=== PATIENT | female | born 1980 | race Caucasian/White ===

== ENCOUNTER 2018-12-18 10:05 | Inpatient (IN) | payer BC ==
[~2018-12-18] VITALS: Ht 160 cm; Wt 72.1 kg
[2018-12-18] VITALS (51 sets, daily range): BP systolic 76–124; BP diastolic 46–75
[~2018-12-18 10:05] MED LIST: ACHYD1T PO; ALBU8.5H2 IH; Docusate Sodium PO; Ibuprofen PO; MONT10TA21 PO; PEDI1TAB35 PO
--- NOTE | 2018-12-18 10:05 | NUR ---
Arrived to unit via ambulation. Sent from clinic in labor. Wt obtained and to room 318. Urine sample obtained and gowned. pt to bed. monitors applied. plan of care reviewed with pt and at bedside. Oriented to room, call light and surroundings. ice water to bedside.
[2018-12-18] MEDS ORDERED: D5 LR IV SOLUTION 1,000 ML IV SCH (10:15)
[2018-12-18 10:58] LABS: BASOPHILS % (AUTO) 0 % (0-10); EOSINOPHILS # (AUTO) 0.1 10^3/uL (0.0-0.3); EOSINOPHILS % (AUTO) 1 % (0-10); HEMATOCRIT 32 % (35-52); HEMOGLOBIN 10.5 G/DL (11.5-16.0); LYMPHOCYTES # (AUTO) 1.8 X 10^3 (1.0-4.0); LYMPHOCYTES % (AUTO) 21 % (12-44); MEAN CORPUSCULAR HEMOGLOBIN 28 PG (25-34); MEAN CORPUSCULAR HGB CONC 33 G/DL (32-36); MEAN CORPUSCULAR VOLUME 86 FL (80-99); MEAN PLATELET VOLUME 10.5 FL (7.4-10.4); MONOCYTES # (AUTO) 0.8 X 10^3 (0.0-1.0); MONOCYTES % (AUTO) 9 % (0-12); NEUTROPHILS # (AUTO) 5.9 X 10^3 (1.8-7.8); NEUTROPHILS % (AUTO) 69 % (42-75); PLATELET COUNT 231 10^3/uL (130-400); RED CELL DISTRIBUTION WIDTH 13.5 % (10.0-14.5); WHITE BLOOD COUNT 8.5 10^3/uL (4.3-11.0)
--- NOTE | 2018-12-18 11:05 | NUR ---
noted varicosities to left leg.
[2018-12-18] MEDS ORDERED: FLUT1AER IH ×2 (11:22)
[2018-12-18] MEDS ORDERED: SUFENTA 0.6MCG/ML BUPIVA 0.125 100 ML ONE (11:27)
[2018-12-18] MEDS ORDERED: fentaNYL INJECTION 100 MCG/2 ML AMP ONE (11:48)
[2018-12-18] MEDS ORDERED: BUPIVACAINE 0.25% 30 ML (SENSORCAINE) VIAL ONE (11:48)
[2018-12-18] MEDS ORDERED: ONDANSETRON 4 MG/2 ML (SDV) Z0FRAN ONE (12:48)
[2018-12-18] MEDS ORDERED: LACTATED RINGERS 1,000 ML IV SCH (13:02)
[2018-12-18] MEDS ORDERED: METOCLOPRAMIDE INJ 10 MG/2 ML (REGLAN) IV PRN (13:15)
[2018-12-18] MEDS ORDERED: ONDANSETRON 4 MG/2 ML (SDV) Z0FRAN IV PRN (13:15)
[2018-12-18] MEDS ORDERED: diphenhydrAMINE 50 MG/ML INJ (BENADRYL) IV PRN (13:15)
[2018-12-18] MEDS ORDERED: EPIDURAL (SUFENTA 0.6MCG/ML BUPIVA 0.125%) 100 ML BAG EPI PRN (13:15)
[2018-12-18] MEDS ORDERED: NALOXONE 0.4 MG/ML 1 ML (NARCAN) VIAL IV PRN ×2 (13:15)
[2018-12-18] MEDS ORDERED: DOCU-143 PO ×2 (13:34)
[2018-12-18] MEDS ORDERED: IBUP-1780 PO ×2 (13:34)
[2018-12-18] MEDS ORDERED: OXYC1TAB87 PO ×2 (13:34)
--- NOTE | 2018-12-18 13:35 | Discharge Instructions ---
Discharge Instructions Discharge Medications New, Converted or Re-Newed RX: RX on Chart Patient Instructions Return to The Hospital For: DIRECTED Activity & Diet Discharge Diet: No Restrictions Activity as Tolerated: No Orders-Post D/C & Referrals Follow Up Appt: Call to make follow up appt. for patient in 4 weeks. Activity Per routine post vaginal delivery instructions. Please call in RX to patient pharmacy. Diet as tolerated Patient may shower or tub bathe as desired. RIMMA GALLO MD Dec 18, 2018 13:35
[2018-12-18] MEDS ORDERED: OXYTOCIN/NORMAL SALINE 500 ML IV SCH ×2 (15:57→19:22)
[2018-12-18] MEDS: D5 LR IV SOLUTION 1,000 ML IV SCH (15:58)
[2018-12-18] MEDS: CATHETER FLUSH 10 ML SYR IV SCH ×2 (15:59→22:00)
[2018-12-18] MEDS ORDERED: OXYTOCIN/NORMAL SALINE 500 ML IV ONE (16:00)
[2018-12-18] MEDS ORDERED: LIDOCAINE/EPI 2% 1:200,00 (XYLOCAINE) 10 ML VIAL ONE (17:31)
--- NOTE | 2018-12-18 17:49 | NUR ---
Spontaneous vaginal delivery of placenta with cord. fundal massage by rn with heavy to moderate rubra noted, no clots noted. perineum examined per dr webber. 1750 vss ffu/0 with moderate rubra noted. plan of care reviewed with pt. 1757 epidural infusion stopped 1800 pt to hf position to take epidural out. epidural dc'd with tip intact. pt reports with sitting in hf position that her head and neck are starting to hurt again. pt back down to low duran position. 1805 vss. ffu/0 with lt-mod rubra noted and 5cm clot expressed. 1820 vss. ffu/0 with lt-mod rubra noted, no clots expressed. 1837 vss ffu/0 with mod rubra noted, no clots expressed. 1850 ffu/0 with mod rubra noted, no clots expressed 1904 vss ffu/0 with lt rubra noted, no clots expressed. pericare, pad changed and underwear on.
[2018-12-18] MEDS ORDERED: BENZOCAINE/MENTHOL (DERMOPLAST) 56 ML CAN TP PRN (19:30)
[2018-12-18] MEDS ORDERED: MEASLES,MUMPS,RUBELLA 1 EA INJ SC ONE (19:30)
[2018-12-18] MEDS ORDERED: oxyCODONE/APAP 5/325MG (PERCOCET 5) TABLET PO PRN (19:30)
[2018-12-18] MEDS ORDERED: TETANUS,DIPTH,PERTUSS P/F (BOOSTRIX) 0.5 ML VIAL IM ONE (19:30)
[2018-12-18] MEDS ORDERED: ONDANSETRON 4 MG/2 ML (SDV) Z0FRAN IVP PRN (19:30)
--- NOTE | 2018-12-18 20:43 | OPERATIVE REPORT ---
DATE OF SERVICE: 12/18/2018 DELIVERY NOTE The patient delivered by term spontaneous vaginal delivery at 37 and 5/7 weeks' gestation, a viable female infant with Apgars of 9 and 9 at 1 and 5 minutes respectively, weight of 6 pounds 11 ounces. time of 1744 and a cord blood pH that is pending. The delivered over an intact perineum under epidural analgesia. The infant was bulb suctioned on delivery of the head and again on completion of delivery. Umbilical cord was eventually doubly clamped, father cut the cord and the baby was passed to mom's abdomen. Cord bloods were obtained. The placenta delivered spontaneously [place]. It was normal with a 3-vessel cord. The cervix, vagina, rectum, and perineum were examined and found intact, except for two minor superficial abrasions on the inner left labia majora and minora. These were hemostatic and very superficial and required no repair. Sponge and needle counts were correct on completion of delivery on the post- exam. The patient remained in the LDR for recovery. Estimated blood loss was around 300 mL for the delivery. The patient tolerated the delivery well, the baby remained with the mom. Job ID: [id number] DocumentID: [id number] Dictated Date: 12/18/2018 17:59:56 Leather Stripping Machine Operator Date: 12/18/2018 20:42:03 Dictated By: RIMMA GALLO MD
[2018-12-18] MEDS: KETOROLAC 30 MG/ML VIAL IVP SCH (21:30)
[2018-12-18] MEDS: DOCUSATE SODIUM 100 MG (COLACE) CAP PO SCH (21:30)
[2018-12-19] VITALS (13 sets, daily range): BP systolic 92–107; BP diastolic 58–71
[2018-12-19] MEDS: D5 LR IV SOLUTION 1,000 ML IV SCH ×4 (01:20→10:12)
[2018-12-19] MEDS: KETOROLAC 30 MG/ML VIAL IVP SCH ×2 (04:41→09:58)
[2018-12-19] MEDS ORDERED: BUTORPHANOL INJ 2 MG/ML (STADOL) VIAL ONE (05:08)
--- NOTE | 2018-12-19 05:10 | Progress Note ---
Standard Progress Note Progress Notes/Assess & Plan Date Seen by a Provider: Dec 19, 2018 Time Seen by a Provider: 05:08 Progress/Assessment & Plan Patient complains of a headache likely related to a wet tap on her epidural. Anesthesia is apprised and will be managed patient today in that regard. Patient is voiding and tolerating oral intake. Vital Signs 12/19/18 04:12 Temp 37.1 Pulse 88 Resp 16 B/P (MAP) 98/66 (77) Pulse Ox 97 O2 Delivery Room Air Vital signs are stable. Patient is afebrile. The abdomen is benign. Fundus is firm below the umbilicus nontender. Extremities show no clubbing cyanosis. There is no Homans sign. Assessment and plan day number 1 status post term spontaneous vaginal delivery doing well except for spinal headache. Plan is for routine convalescence care was consult for anesthesia for her headache. Plan on discharge home likely tomorrow if patient is ready Final Diagnosis 37-5/7 weeks spontaneous vaginal delivery RIMMA GALLO MD Dec 19, 2018 05:10
[2018-12-19] MEDS ORDERED: BUTORPHANOL INJ 2 MG/ML (STADOL) VIAL IV PRN (05:15)
--- NOTE | 2018-12-19 07:55 | NUR ---
Steve Tovar called and notified of second shift supervisor patient financial rep of pt overnight. Notified of pt difficulty with standing sitting upright, having to lie flat in bed and increasing pain with ADL's. New order received to obtain consent for blood patch this a.m. received. Rn to pt bedside and reviewed plan of care with pt and .
--- NOTE | 2018-12-19 09:05 | NUR ---
Steve Tovar WOOL HAT HYDRAULICKER to bedside and reviewed plan of care with pt.
--- NOTE | 2018-12-19 09:20 | NUR ---
Pt up and ambulates to room 308 accompanied by RN. To side of bed for epidural blood patch. Addendum: 12/19/18 at 1028 by ADORE AMADOR RN see anesthesia record
--- NOTE | 2018-12-19 09:50 | NUR ---
Ambulates self back to room 310, to bathroom. pt reports nausea and increased neck pressure. void and to bed in flat position. emesis basin given. rn obtained vital signs. pt reports nausea better but neck pressure and between shoulder blades pain of 7:10. plan of care reviewed with pt. Addendum: 12/19/18 at 1028 by ADORE AMADOR RN accompanied by rn back to room. Addendum: 12/19/18 at 1057 by ADORE AMADOR RN Steve Tovar crna informed rn to take several blood pressures after procedure. No further orders.
[2018-12-19] MEDS: DOCUSATE SODIUM 100 MG (COLACE) CAP PO SCH ×2 (09:58→20:51)
--- NOTE | 2018-12-19 10:25 | NUR ---
Dr webber given update regarding blood patch and iv fluids infusing.
--- NOTE | 2018-12-19 11:28 | Anesthesia-Regional Post-Op ---
Regional Patient Condition Mental Status: Alert, Oriented x3 Circulation: Same as Pre-Op Headache: Present Sensation: Full Recovery Motor Block: Absent Post Op Complications Complications PDPH, epidural blood patch performed see anesthesia record Follow Up Care/Instructions Patient Instructions Rest and fluids Anesthesia/Patient Condition RENE AREVALO CRNA Dec 19, 2018 11:28
--- NOTE | 2018-12-19 12:00 | NUR ---
RN to bedside pt sitting low duran/semi duran position in bed and reports pain is better/tolerable at 3:10.
--- NOTE | 2018-12-19 15:00 | NUR ---
Pt iv site covered and up to shower. Denied problems, c/o during shower
--- NOTE | 2018-12-19 17:00 | NUR ---
RN to bedside. pt sitting up in chair by window holding baby. reports slight headache but tolerable.
[2018-12-19] MEDS: IBUPROFEN 800 MG (MOTRIN) TAB PO SCH (17:10)
[2018-12-20] MEDS: IBUPROFEN 800 MG (MOTRIN) TAB PO SCH ×2 (00:16→06:47)
[2018-12-20 00:30] VITALS: BP 87/62
[2018-12-20 06:50] VITALS: BP 85/58
--- NOTE | 2018-12-20 06:50 | NUR ---
Saline lock d/c'd at this time.
[2018-12-20 09:50] VITALS: BP 99/70
--- NOTE | 2018-12-20 20:08 | Anesthesia-Regional Post-Op ---
Regional Patient Condition Mental Status: Alert, Oriented x3 Circulation: Same as Pre-Op Headache: Absent Sensation: Full Recovery Motor Block: Absent Post Op Complications Complications None Follow Up Care/Instructions Patient Instructions None needed. Anesthesia/Patient Condition Patient is doing well, no complaints, stable vital signs, no apparent adverse anesthesia problems. No complications reported per nursing. RENE AREVALO CRNA Dec 20, 2018 20:08
== END 2018-12-20 09:50 | disposition home or self-care (01) | DRG 807 ==
LOC: LDRP 10:05
PROVIDERS: ADMIT Obstetrics & Gynecology; ATTEND Obstetrics & Gynecology
PROC: 10E0XZZ Delivery of Products of Conception, External Approach (ICD-10-PCS; principal; 2018-12-18)
DX: O99.62 Diseases of the digestive system complicating childbirth (principal); Z37.0 Single live birth; O99.52 Diseases of the respiratory system complicating childbirth; J45.909 Unspecified asthma, uncomplicated; K21.9 Gastro-esophageal reflux disease without esophagitis; O71.82 Other specified trauma to perineum and vulva; O89.4 Spinal and epidural anesthesia-induced headache during the puerperium; Z3A.37 37 weeks gestation of pregnancy
CPT/HCPCS: 36415; 85025; 86850; 86900; 86901

== ENCOUNTER 2018-12-21 11:18 | Outpatient (CLI) | payer BC ==
[~2018-12-21] VITALS: Ht 160 cm; Wt 72.1 kg
[~2018-12-21 11:18] MED LIST changes: +DOCU-143 PO; +FLUT1AER IH; +IBUP-1780 PO; +OXYC1TAB87 PO
[2018-12-21 12:28] VITALS: BP 116/77
--- NOTE | 2018-12-21 14:24 | Anesthesia-Procedure Note ---
Procedures/Interventions Procedure Start/Stop/Diagnosis Date of Procedure: Dec 21, 2018 Start Time: 11:48 Referring Physician: Manju Preprocedural Diagnosis: PDPH Brief History This patient is a female who had a labor epidural placed on Friday12/18/18 with immediate complaints of a headache. An epidural blood patch was done on Friday with relief of symptoms for approximately 36 hours. On Friday evening, the patient noted a return of symptoms including headache that was significantly worse in a sitting or standing position and pressure in her shoulders and neck. The patient consulted with Dr. Nunes this am who sent her to our outpatient surgery center for a consultation and possible repeat blood patch. I reviewed the patient's course of treatment and her symptoms (which are classic symptoms for a PDPH) and discussed that her headache would eventually go away without any treatment; however, a repeat epidural blood patch is sometimes necessary for return of symptoms due to a dura puncture, and her headache has the potential to resolve almost instantly. The patient wished to proceed with a repeat epidural blood patch. The patient's platelet count was reviewed, greater than 200,000, thus a consent was obtained and the procedure was performed. A Blake epidural kit was used to access the epidural space. Betadine x3 was used to prep the patient's lumbar area and sterile technique was used throughout the procedure and when drawing the patient's blood, which was done by Dr. Antoine Paul. The patient's epidural space was accessed at L4-L5 with drastic ALEJANDRA at 5.5 cm. Negative heme or CSF noted. All 20 cc of the patient's blood was then injected, again, maintaining sterile technique. The Tuohy was removed and a Bandaid applied over the site. The patient was assisted supine with HOB elevated about 45 degrees. At this time she stated she still felt some pressure in her sh oulders, but that her headache was gone. The patient was given ice water and a second set of vital signs were taken, all WNL. The patient's was called into the room and I went over post-procedure limitations such as bending, lifting, and any straining. The patient confirmed understanding and she was released to home. Instructions were given for her to follow-up with Dr. Felicita cortez if she experienced any other headaches. We will be available for further consultation if needed. Stop Time: 12:05 Blood Patch Blood Patch see note from above TAYLER ROJAS CRNA Dec 21, 2018 14:24 POS
== END 2018-12-21 12:28 | disposition home or self-care (01) ==
LOC: SDC 11:18
PROVIDERS: ATTEND Obstetrics & Gynecology
DX: Z01.89 Encounter for other specified special examinations (principal)